=== PATIENT | female | born 1990 | race Caucasian/White ===

== ENCOUNTER 2025-06-11 08:32 | Outpatient (CLI) | payer MEDICAID ==
--- NOTE | 2025-06-11 12:19 | VASCULAR REPORT ---
ULTRASOUND AORTA CLINICAL INDICATION: Abdominal pain, family history of abdominal aortic aneurysm TECHNIQUE: Multiple sonographic images of the abdominal aorta were obtained.Duplex Doppler evaluation including color Doppler and spectral/pulsed waveform analysis was performed. COMPARISON: None FINDINGS: Aorta AP measurement Proximal 1.8 cm Mid 1.7 cm Inferior 1.7 cm The right iliac artery measures 0.9 cm. The left iliac artery measures 1.0 cm. IMPRESSION: No abdominal aortic aneurysm.
== END 2025-06-11 23:59 | disposition home or self-care (01) ==
LOC: RAD 08:32
PROVIDERS: ATTEND Family Medicine
DX: R10.9 Unspecified abdominal pain (principal); Z82.49 Family history of ischemic heart disease and other diseases of the circulatory system
CPT/HCPCS: 93978